=== PATIENT | male | born 1965 | race Caucasian/White ===

== ENCOUNTER → 2021-07-21 | Outpatient (CLI) | payer BC ==
[~2021-07-21] MED LIST: AMLODIPINE BESYL5 MG PO; COREG25 MG PO; GLIPIZIDE2.5 MG PO; LISINOPRIL20 MG PO; METFORMIN HYD1000 MG PO
== END | disposition home or self-care (01) ==
LOC: COVID19 15:07
PROVIDERS: ATTEND Internal Medicine
DX: U07.1 COVID-19 (principal)